=== PATIENT | female | born 1990 | race Caucasian/White ===

== ENCOUNTER 2019-07-27 10:53 | Emergency (ER) | payer MEDICAID ==
[~2019-07-27] VITALS: Ht 157.5 cm; Wt 55.8 kg
[2019-07-27 10:53] VITALS: BP_SYST 110
--- NOTE | 2019-07-27 10:53 | NUR ---
Placed in room 1. Placed on site monitor, blood pressure machine and pulse oximeter. To gown for exam. Side rails up. Report given to AKILA Singer.
--- NOTE | 2019-07-27 11:00 | NUR ---
Pt came to ER approximately 30min after having seizure. She is AO4, VSS, answers questions appropriately, calm and cooperative
[2019-07-27] MEDS ORDERED: LAM100 PO (11:02)
--- NOTE | 2019-07-27 11:02 | NUR ---
[facility] Report filed and faxed to [phone].
--- NOTE | 2019-07-27 11:05 | NUR ---
ER at bedside examining patient.
[2019-07-27] MEDS ORDERED: LORazepam 2 MG/ML VIAL IVP ONE (11:15)
[2019-07-27] MEDS ORDERED: PHENYTOIN SODIUM INJ 1,000 MG in NS 100 ML IV ONE (11:15)
[2019-07-27] MEDS ORDERED: LORazepam 2 MG/ML VIAL ONE (11:23)
[2019-07-27] MEDS ORDERED: PHENYTOIN SODIUM 250 MG/5 ML INJ. VIAL IV ONE (11:38)
--- NOTE | 2019-07-27 11:45 | NUR ---
Pt resting comfortably at this time no distress noted.
--- NOTE | 2019-07-27 12:12 | NUR ---
Patient given written and verbal discharge instructions and verbalizes understanding. ER MD discussed with patient the results and treatment provided. Patient in stable condition. ID arm band removed. IV catheter removed intact and dressing applied, no active bleeding. Rx of Lamictal given. Patient educated on pain management and to follow up with PMD. Pain Scale 0/10. Opportunity for questions provided and answered. Medication side effect fact sheet provided.
[2019-07-27 12:29] VITALS: BP_SYST 110
[2019-07-28] MEDS ORDERED: LAMO200T24 PO (17:00)
== END 2019-07-27 12:13 | disposition home or self-care (01) ==
LOC: SED 10:53
DX: R56.9 Unspecified convulsions (principal); Z79.899 Other long term (current) drug therapy
CPT/HCPCS: 96365; 96375; 99284; J1165; J2060

== ENCOUNTER 2019-07-28 16:14 | Emergency (ER) | payer MEDICAID ==
[~2019-07-28] VITALS: Ht 160 cm; Wt 63.5 kg
[~2019-07-28 16:14] MED LIST: LAM100 PO
[2019-07-28] MEDS ORDERED: LAMO200T24 PO (17:00)
[2019-07-28 17:01] VITALS: BP_SYST 1
--- NOTE | 2019-07-28 17:06 | NUR ---
PATIENT RETURNED TO WAITING AREA FOR PENDING BED ASSIGNMENT
[2019-07-28 22:27] VITALS: BP_SYST 1
== END 2019-07-28 22:27 | disposition left against medical advice (07) ==
LOC: SED 16:14
DX: R68.84 Jaw pain (principal); Z53.21 Procedure and treatment not carried out due to patient leaving prior to being seen by health care provider

== ENCOUNTER 2019-12-29 22:31 | Emergency (ER) | payer MEDICAID ==
[~2019-12-29] VITALS: Ht 160 cm; Wt 63.0 kg
[~2019-12-29 22:31] MED LIST changes: -LAM100 PO; +LAMO200T24 PO
[2019-12-29 22:40] VITALS: BP_SYST 126
--- NOTE | 2019-12-29 22:40 | NUR ---
Pt ambulatory to bed 4 for evaluation
--- NOTE | 2019-12-29 22:50 | NUR ---
Patient came to ER with family. C/O vaginal bleeding x 2 weeks, Patient reported, patient had Sx cervical biopsy procedure x 2 weeks ago, seen by [facility] today, [facility] -normal vaginal bleeding, Patient concerned, heavy vaginal bleeding today.
--- NOTE | 2019-12-29 22:57 | NUR ---
ER Dr. Faust at bedside examining patient.
--- NOTE | 2019-12-29 23:10 | NUR ---
Pelvic exam performed by Dr. Faust with AKILA Garcia at bedside for entire examination. Patient tolerated procedure well. Patient assisted to position of comfort after examination.
[2019-12-29] MEDS ORDERED: NACL 0.9% 1,000 ML IV ONE (23:15)
[2019-12-29 23:46] LABS: BASOPHILS # (AUTO) 0.1 K/uL (0.0-0.2); BASOPHILS % (AUTO) 0.8 % (0.0-2.0); EOSINOPHILS # (AUTO) 0.3 K/uL (0.0-0.4); EOSINOPHILS % (AUTO) 4.8 % (0.0-4.0); HEMATOCRIT 37.7 % (36-48); HEMOGLOBIN 12.7 g/dL (12.0-16.0); LYMPHOCYTES # (AUTO) 2.4 K/uL (1.0-5.5); LYMPHOCYTES % (AUTO) 32.5 % (20.5-51.5); MEAN CORPUSCULAR HEMOGLOBIN 30 pg (27-31); MEAN CORPUSCULAR HGB CONC 34 % (32-36); MEAN CORPUSCULAR VOLUME 88 fL (79.0-98.0); MONOCYTES # (AUTO) 0.5 K/uL (0.0-1.0); MONOCYTES % (AUTO) 7.4 % (1.7-9.3); NEUTROPHILS % (AUTO) 54.5 % (40.0-70.0); PLATELET COUNT (AUTO) 251 K/uL (130-430); RED BLOOD CELL COUNT(AUTO) 4.27 MIL/uL (4.2-6.2); RED CELL DISTRIBUTION WIDTH 13.7 % (9.0-15.0); WHITE BLOOD COUNT (AUTO) 7.3 K/uL (4.8-10.8)
[2019-12-30 00:02] LABS: CALCIUM 8.7 mg/dL (8.4-11.0); CREATININE 0.7 mg/dL (0.55-1.30); POTASSIUM 3.7 mmol/L (3.5-5.1)
[2019-12-30 00:05] LABS: INR 0.9 (0.8-1.2); PROTHROMBIN TIME 9.6 SECS (9.5-12.5)
--- NOTE | 2019-12-30 00:15 | NUR ---
VSS no s/s of acute distress Resting on gurney rails up
[2019-12-30 01:35] VITALS: BP_SYST 126
--- NOTE | 2019-12-30 01:35 | NUR ---
Patient given written and verbal discharge instructions and verbalizes understanding. ER MD discussed with patient the results and treatment provided. Patient in stable condition. ID arm band removed. IV catheter removed intact and dressing applied, no active bleeding.Patient educated on pain management and to follow up with PMD. Pain Scale 0/10 Opportunity for questions provided and answered.
== END 2019-12-30 01:35 | disposition home or self-care (01) ==
LOC: SED 22:31
DX: N93.9 Abnormal uterine and vaginal bleeding, unspecified (principal)
CPT/HCPCS: 36415; 80048; 85025; 85610; 86886; 86900; 86901; 96360; 96361; 99283; J7030; 99284

== ENCOUNTER 2020-03-09 00:35 | Emergency (ER) | payer MEDICAID, SELFPAY ==
[~2020-03-09] VITALS: Ht 160 cm; Wt 63.5 kg
[2020-03-09 00:50] VITALS: BP_SYST 145
[2020-03-09] MEDS ORDERED: cefTRIAXone 1 GM in LIDOCAINE 1%, 20 ML MDV 2.1 ML IM ONE (02:15)
[2020-03-09] MEDS ORDERED: KETOROLAC TROMETHAMINE 60 MG/2 ML VIAL IM ONE (02:15)
[2020-03-09] MEDS ORDERED: cefTRIAXone 1 GM VIAL ONE (02:39)
[2020-03-09 03:30] VITALS: BP_SYST 140
== END 2020-03-09 03:30 | disposition home or self-care (01) ==
LOC: SED 00:35
DX: J40 Bronchitis, not specified as acute or chronic (principal); J02.9 Acute pharyngitis, unspecified; Z20.828 Contact with and (suspected) exposure to other viral communicable diseases
CPT/HCPCS: 36415; 71045; 81025; 87426; 96372; 99284; J0696; J1885